=== PATIENT | female | born 1960 | race Caucasian/White ===

== ENCOUNTER → 2023-01-19 09:23 | Outpatient (BNVA) | payer OTHER, SELFPAY | PROVIDERS: PCP Internal Medicine; Visit Provider Psychiatry & Neurology Neurology ==

== ENCOUNTER → 2023-02-20 11:01 | Outpatient (REF) | payer OTHER, SELFPAY | LOC: HO.SL 11:01 | PROVIDERS: PCP Internal Medicine; Visit Provider Psychiatry & Neurology Neurology | DX: G47.10 Hypersomnia, unspecified (principal); R06.83 Snoring | CPT/HCPCS: 95806 ==

== ENCOUNTER → 2023-02-20 11:10 | Outpatient (BNV) | payer OTHER, SELFPAY | PROVIDERS: PCP Internal Medicine; Visit Provider Psychiatry & Neurology Neurology | DX: R06.83 Snoring (principal) | CPT/HCPCS: 95806 ==

== ENCOUNTER → 2023-04-27 14:06 | Outpatient (REF) | payer OTHER, SELFPAY | LOC: HO.SL 14:06 | PROVIDERS: PCP Internal Medicine; Visit Provider Nurse Practitioner Family | DX: G47.10 Hypersomnia, unspecified (principal); G47.00 Insomnia, unspecified; R06.83 Snoring | CPT/HCPCS: 95806 ==

== ENCOUNTER → 2023-04-27 14:16 | Outpatient (BNV) | payer OTHER, SELFPAY | PROVIDERS: PCP Internal Medicine; Visit Provider Internal Medicine | DX: R06.83 Snoring (principal) | CPT/HCPCS: 95806 ==

== ENCOUNTER 2023-05-04 12:23 | Outpatient (AMB) | payer OTHER, SELFPAY ==
--- NOTE | 2023-05-04 12:27 | MHC.OFFVIS ---
Intake Vital Signs 05/04/23 12:29 Height 5 ft 3 in Weight 146 lb 2 oz BMI 25.9 BP 124/82 Blood Pressure Location Lt brachial Position Sitting Pulse 62 Pulse Source Pulse Oximeter Pulse Oximetry (%) 97 Oxygen Delivery Method Room Air Intake Visit Reasons: 3m f/u trigeminal neuralgia-confirmed Intake Note: Pt states she is sleeping better, but she has tried a weighted blanket and its some improvement Allergies No Known Allergies Allergy (Verified 05/04/23 12:33) Medication List - Last Reconciled 05/04/23 by Anabela Brown MD calcium citrate-vitamin D3 200 mg-6.25 mcg (250 unit) (Citracal-D3 Petites) 1 tab PO DAILY cholecalciferol (vitamin D3) 25 mcg PO DAILY cranberry 400 mg PO DAILY fexofenadine (Stefany Allergy) 60 mg PO BID gabapentin 100 mg PO BEDTIME levothyroxine (Euthyrox) 50 mcg PO DAILY lifitegrast 5% (Xiidra) 1 drp ophthalmic (eye) BID magnesium glycinate 100 mg PO DAILY simvastatin 10 mg PO DAILY kbsvesp-dtfy-fblko-oreg-capryl 100 mg-150 mg- 50 mg-150 mg caps PO vit B complex 100 combo no.2 ER (B-100 Complex ER) tabs PO zinc sulfate (Orazinc) 50 mg PO DAILY HPI HPI Comments History of Present Illness Details 62y/o female comes for follow up of left facial pain . she did not tolerate gabapentin made her hot flashes worse. MRI and Home sleep test were normal. Previous history-It started in November 2020. She is not sure what triggered her pain . she describes the pain as nail through her head , 10/10 in intensity and lasted 1 day and she took at benadryl at night. When she woke up her pain resolved. she started having episodic pain in her left jaw and it lasts until she takes a bendryl. Motrin did not help.she was seen dentist , ENT . TMJ and sinus issues was ruled out. she switched from claritin to stefany and thinks it might have helped. In Jul 2021 her pain increased usually triggered by chewing.Salt triggered her pain. she denies any burning tingling numbness . In Jun 2022 she had 3 days of non stop pain . she had an URI at that time and she could not sleep. she also started having lower jaw pain .she went to a dentist again , noticed her lower tooth was sensitive.Her lower molar also split in 08/01. she had her tooth ( lower molar) was extracted in November 2022 and her pain resolved. No upper jaw pain since Jul 2022. she denies any diplopia, vertigo , speech problems SHe has loud snoring, gasping arousals , grinds her teeth, witnessed apnea.she wakes up multiple times during the night and has daytime sleepiness. she has been living alone since she was 23. she has trouble falling asleep and staying asleep . she works from home and is on the computer most of the day she denies anxiety depression.she reports fluctuation in her body temperature at night. [facility] Medical History Left facial pain Hypersomnia Snoring Insomnia Hyperlipidemia Jie's thyroiditis Surgical History H/O lithotripsy H/O: hysterectomy Family History Mother Thyroid disease Son No problems noted. Social History Alcohol intake: never Patient Tobacco Use Status: Never used Tobacco Physical Exam Vital Signs: Last Vital Signs Pulse 62 05/04/23 12:29 BP 124/82 05/04/23 12:29 Pulse Ox 97 05/04/23 12:29 Oxygen Delivery Method Room Air 05/04/23 12:29 BMI result Body Mass Index 25.9 Const General: cooperative, healthy appearing, comfortable and anxious Nutritional Appearance: average body habitus Orientation/consciousness: patient oriented x3 Limitations: no limitations Eyes Pupils: Equal, round and reactive pupils present Neuro Other: Mallampatti grade 4 Jaw opening decreased . No tenderness General: patient oriented x3, gait normal, tone normal, moves all extremities and no focal motor deficits Cranial nerves: Yes Facial sensation intact/muscles of mastication intact, Yes Equal, round and reactive pupils present, Yes Bilaterally intact EOM present, Yes Nystagmus not present, Yes Normal facial strength present, Yes Midline tongue present and Yes Symmetric palate elevation present Cognition (Neuro): normal cognition Gait exam (Neuro): Normal gait present Motor exam (neuro): 5/5 motor strength present throughout and no tremor noted Coordination: [id number] test normal Psych Affect: Anxious affect present Assessment & Plan Assessment & Plan (1) Left facial pain: Comment: likely related to bruxism , TMJ dental issues. Code(s): R51.9 - Headache, unspecified (2) Insomnia: Code(s): G47.00 - Insomnia, unspecified Plan Magnesium glycinate to 400mg qhs STop gabapentin Trial baclofen 5mg qhs Increase melatonin 3mg qhs continue stefany qd and benadryl as needed. continue mouth guard SLeep study- normal MRI brain- normal Medications: New baclofen 5 mg PO BEDTIME 30 tabs 3RF Coding Level of Care Code Est Pt Level 4 (25449) Diagnoses Left facial pain R51.9 Insomnia G47.00
[2023-05-04 12:29] VITALS: BP 124/82; PULSE 62; O2SAT 97; BMI 25.9
== END 2023-05-04 12:55 | disposition home or self-care (01) ==
PROVIDERS: PCP Internal Medicine; Visit Provider Psychiatry & Neurology Neurology
DX: R51.9 Headache, unspecified (principal); G47.00 Insomnia, unspecified
CPT/HCPCS: 99214

== ENCOUNTER → 2023-05-04 12:23 | Outpatient (BNVA) | payer OTHER, SELFPAY | PROVIDERS: PCP Internal Medicine; Visit Provider Psychiatry & Neurology Neurology | DX: R51.9 Headache, unspecified (principal); R06.83 Snoring; G47.10 Hypersomnia, unspecified; G47.00 Insomnia, unspecified ==

== ENCOUNTER 2023-10-03 13:46 | Outpatient (AMB) | payer OTHER, SELFPAY ==
--- NOTE | 2023-10-03 13:50 | MHC.OFFVIS ---
Intake Vital Signs 10/03/23 13:51 Height 5 ft 3 in BP 110/78 Blood Pressure Location Rt brachial Position Sitting Respiration 17 Pulse 76 Pulse Source Pulse Oximeter Pulse Oximetry (%) 99 Oxygen Delivery Method Room Air Intake Visit Reasons: 4 mo f/u-trigeminal neuralgia-CONF Intake Note: Pt presents for a 5 month follow up for insomnia. 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 she tried baclofen for 1 month but did not help . she stopped and also stopped her simvastatin and is feeling better. No facial pain since her tooth extraction her range of motion improved and her pain improved which she thinks its related to stopping statin. she did not tolerate gabapentin made her hot flashes worse. MRI and Home sleep test were normal.Mood is stable as well and is sleeping better. Previous history-It started in November 2020. She is not sure what triggered her pain . she describes the pain as nail through her head , 10/10 in intensity and lasted 1 day and she took at benadryl at night. When she woke up her pain resolved. she started having episodic pain in her left jaw and it lasts until she takes a bendryl. Motrin did not help.she was seen dentist , ENT . TMJ and sinus issues was ruled out. she switched from claritin to rene and thinks it might have helped. In Jul 2021 her pain increased usually triggered by chewing.Salt triggered her pain. she denies any burning tingling numbness . In Jun 2022 she had 3 days of non stop pain . she had an URI at that time and she could not sleep. she also started having lower jaw pain .she went to a dentist again , noticed her lower tooth was sensitive.Her lower molar also split in 08/01. she had her tooth ( lower molar) was extracted in November 2022 and her pain resolved. No upper jaw pain since Jul 2022. she denies any diplopia, vertigo , speech problems [facility] Medical History Left facial pain Hypersomnia Snoring Insomnia Hyperlipidemia Jie's thyroiditis Surgical History H/O lithotripsy H/O: hysterectomy Family History Mother Thyroid disease Son No problems noted. Social History Alcohol intake: never Patient Tobacco Use Status: Never used Tobacco Physical Exam Vital Signs: Last Vital Signs Pulse 76 10/03/23 13:51 Resp 17 10/03/23 13:51 BP 110/78 10/03/23 13:51 Pulse Ox 99 10/03/23 13:51 Oxygen Delivery Method Room Air 10/03/23 13:51 Const General: cooperative, healthy appearing, comfortable and anxious Nutritional Appearance: average body habitus Orientation/consciousness: patient oriented x3 Limitations: no limitations Eyes Pupils: Equal, round and reactive pupils present Neuro Other: Mallampatti grade 4 Jaw opening decreased . No tenderness General: patient oriented x3, gait normal, tone normal, moves all extremities and no focal motor deficits Cranial nerves: Yes Facial sensation intact/muscles of mastication intact, Yes Equal, round and reactive pupils present, Yes Bilaterally intact EOM present, Yes Nystagmus not present, Yes Normal facial strength present, Yes Midline tongue present and Yes Symmetric palate elevation present Cognition (Neuro): normal cognition Gait exam (Neuro): Normal gait present Motor exam (neuro): 5/5 motor strength present throughout and no tremor noted Coordination: [id number] test normal Psych Affect: Anxious affect present Assessment & Plan Assessment & Plan (1) Left facial pain: Comment: likely related to bruxism , TMJ dental issues- resolved Code(s): R51.9 - Headache, unspecified (2) Insomnia: Code(s): G47.00 - Insomnia, unspecified Plan Magnesium glycinate to 400mg qhs melatonin 3mg qhs continue rene qd and benadryl as needed. continue mouth guard SLeep study- normal MRI brain- normal Coding Level of Care Code Est Pt Level 4 (89866) Diagnoses Left facial pain R51.9 Insomnia G47.00
[2023-10-03 13:51] VITALS: BP 110/78; PULSE 76; RESP 17; O2SAT 99
== END 2023-10-03 16:22 | disposition home or self-care (01) ==
PROVIDERS: PCP Internal Medicine; Visit Provider Psychiatry & Neurology Neurology
DX: R51.9 Headache, unspecified (principal); G47.00 Insomnia, unspecified
CPT/HCPCS: 99214

== ENCOUNTER → 2023-10-03 13:46 | Outpatient (BNVA) | payer OTHER, SELFPAY | PROVIDERS: PCP Internal Medicine; Visit Provider Psychiatry & Neurology Neurology ==